=== PATIENT | female | born 1955 | race Caucasian/White ===

== ENCOUNTER → 2017-08-15 | Outpatient (CLI) | payer OTHER ==
--- NOTE | 2017-08-16 07:26 | MAMMOGRAPHY REPORT ---
BILATERAL DIGITAL SCREENING MAMMOGRAM TOMOSYNTHESIS WITH CAD: 08/15/2017 CLINICAL HISTORY: Routine screening examination. TECHNIQUE: Breast tomosynthesis in addition to standard 2D mammography was performed. Current study was also evaluated with a Computer Aided Detection (CAD) system. COMPARISON: Comparison is made to exams dated: 08/12/2016 mammogram, 07/16/2015 mammogram, 07/15/2014 mammogram, 07/12/2013 mammogram - [facility] [address], 01/15/2009, and 01/03/2009. BREAST COMPOSITION: There are scattered areas of fibroglandular density in both breasts. FINDINGS: There are stable benign rodlike calcifications in both breasts. No suspicious mass, archi tectural distortion or cluster of microcalcifications is seen. IMPRESSION: ACR BI-RADS CATEGORY 2: BENIGN There is no mammographic evidence of malignancy. A 1 year screening mammogram is recommended. The pa tient will receive written notification of the results. Approximately 10% of breast cancers are not detected with mammography. A negative mammographic report should not delay biopsy if a clinically suggestive mass is present. Preethi Hodges M.D. ay/:08/15/2017 16:43:49 Scrub Nurse: Anupama COMBS(Dimitri)(Saw), [facility] [address] letter sent: Normal 1/2 BI-RADS Code: ACR BI-RADS Category 2: Benign
== END | disposition home or self-care (01) ==
LOC: C.MAMM 08:56
PROVIDERS: ATTEND Family Medicine
DX: Z12.31 Encounter for screening mammogram for malignant neoplasm of breast (principal)

== ENCOUNTER 2019-02-27 17:55 | Inpatient (IN) ==
[2019-02-27] MEDS ORDERED: ADENOSINE IV SOLN 3 MG/ML 2 ML VIAL IV ONE (18:07)
[2019-02-27] MEDS ORDERED: LORazepam 1 MG/2 ML VIAL IV STA (18:14)
[2019-02-27] MEDS ORDERED: LORazepam 2 MG/4 ML VIAL ONE (18:14)
[2019-02-27] MEDS ORDERED: ASPIRIN CHEW 324 MG PO STA (18:14)
[2019-02-27] MEDS ORDERED: SODIUM CHLORIDE 0.9% 1000ML 1,000 ML IV SCH (18:15)
[2019-02-27 18:31] LABS: Basophils # (auto) 0.04 K/uL (0-0.2); Basophils % (auto) 0.3 %; Eosinophils # (auto) 0.11 K/uL (0-0.5); Eosinophils % (auto) 0.9 %; Hematocrit (blood only) 45.9 % (37-47); Hemoglobin 15.7 g/dL (12.0-16.0); Immature Granulocytes # (auto) 0.03 K/uL (0.00-0.02); Immature Granulocytes % (auto) 0.2 %; Lymphocytes # (auto) 3.87 K/uL (1.2-3.4); Lymphocytes % (auto) 30.1 %; Mean Corpuscular Hgb Conc 34.2 g/dL (32-36); Mean Platelet Volume 8.6 fL (7.4-10.4); Monocytes # (auto) 0.97 K/uL (0.11-0.59); Monocytes % (auto) 7.6 %; Neutrophils # (auto) 7.82 K/uL (1.4-6.5); Neutrophils % (auto) 60.9 %; Platelet Count 309 K/uL (130-400); RDW Coefficient of Variation 13.5 % (11.5-14.5); Red Blood Count 5.16 M/uL (4.2-5.4); White Blood Count 12.84 K/uL (4.8-10.8)
[2019-02-27 18:39] LABS: BUN Creatinine Ratio 22.2 (10-20); Blood Urea Nitrogen 20 mg/dl (7-18); Calcium 9.4 mg/dl (8.5-10.1); Carbon Dioxide 27 mmol/L (21-32); Chloride 102 mmol/L (98-107); Est GFR (African American) 77.9; Est GFR (Non-African American) 67.2; Glucose 129 mg/dl (70-99); Potassium 3.9 mmol/L (3.5-5.1); Sodium 138 mmol/L (136-145)
[2019-02-27 18:43] LABS: Partial Thromboplastin Time 26.7 Seconds (21.0-31.0); Prothrombin Time 9.9 Seconds (9.0-12.0); Troponin I < 0.015 ng/ml (0-0.045)
--- NOTE | 2019-02-27 18:48 | XRay Report ---
XR chest 1V portable CLINICAL HISTORY: Chest Pain COMPARISON STUDY: No previous studies for comparison. FINDINGS: The bones soft tissues and hemidiaphragms are normal. The cardiomediastinal silhouette is n ormal. The lungs are clear. The pulmonary vasculature is normal. IMPRESSION: Negative chest. The above report was generated using voice recognition software. It may contain grammatical, syntax or spelling errors. Electronically signed by: Delvis Boateng M.D. 02/27/2019 6:47 PM
[2019-02-27] MEDS ORDERED: OPTIRAY 320 125ml IV PRN (19:01)
--- NOTE | 2019-02-27 19:20 | CT Scan Report ---
CT angio chest PE protocol CT DOSE: 722.24 mGy.cm HISTORY: Chest pain. Dyspnea. Chest Pain, eval for PE TECHNIQUE: Multiaxial CT images of the chest were performed following the intravenous administration of contrast to evaluate the pulmonary arteries. Maximal intensity projection images were also obtaine d. A dose lowering technique was utilized adhering to the principles of ALARA. COMPARISON STUDY: None. FINDINGS: There is a normal caliber thoracic aorta with no evidence for dissection. There is no evide nce for pulmonary embolus. No pleural effusions. No pneumothorax. The liver and spleen are unremarkab le. No mediastinal or hilar lymphadenopathy. The central airways are patent. The lungs are clear. IMPRESSION: No evidence for pulmonary embolus. The lungs are clear. The above report was generated using voice recognition software. It may contain grammatical, syntax or spelling errors. Electronically signed by: Delvis Boateng M.D. 02/27/2019 7:19 PM
[2019-02-27] MEDS ORDERED: POTASSIUM CHLORIDE 20 MEQ TABCR PO STA (20:00)
[2019-02-27 21:00] LABS: Alanine Aminotransferase 30 U/L (12-78); Albumin Level 4.1 gm/dl (3.4-5.0); Alkaline Phosphatase 86 U/L (45-117); Aspartate Aminotransferase 20 U/L (15-37); Bilirubin Direct 0.1 mg/dl (0-0.2); Bilirubin,Total 0.6 mg/dl (0.2-1); Magnesium 2.1 mg/dl (1.8-2.4); Total Protein 7.9 gm/dl (6.4-8.2)
--- NOTE | 2019-02-27 21:39 | Emergency Department Note ---
Entered by Tita Wheat acting as a scribe for History of Present Illness General Chief complaint: Cardiac Assessment Stated complaint: HEART PALPITATIONS, DIZZY, SOB Time Seen by Provider: 02/27/19 18:13 Source: patient History of Present Illness Onset (ago): hour(s) 1 Location: chest Severity: similar to prior episodes Pain Consistency: + other (episode ) Maximum Pain Intensity: 3 Quality: + other (palpitations) Associated symptoms: + other (positive dizziness; positive lightheaded; negative diarrhea; negative coughing up blood); no chest pain, no fever/chills, no nausea/vomiting, no shortness of breath and no syncope The patient is a 63 year old female who presents to the Emergency Room with complaints of an episode of heart palpitations that began 1 hour prior to arrival. The patient states that she feels dizzy and lightheaded, and states that she felt as though she was going to pass out. The patient denies syncope. She denies nausea, vomiting, diarrhea, fevers, coughing up blood, chest pain, and shortness of breath. The patient denies recent travel and recent surgeries. She denies the use of hormone pills. The patient denies having any excess caffeine this morning, and states that she has not had a lot to eat today. The patient states that this is similar to a prior episode 10 years ago, and states that this episode was due to anxiety. The patient denies recent or current anx iety, but states that she has had increased stress in her life over the last year. Home Medications Home Medications Medication Instructions Recorded Confirmed Type ijsjanm-[id number] 2 tab PO QPM 02/27/19 02/27/19 History ibuprofen [Advil] 200 - 400 mg PO UD PRN 02/27/19 02/27/19 History Allergies Allergy/AdvReac Type Severity Reaction Status Date / Time No Known Allergies Allergy Verified 02/27/19 18:55 Past Med/Surg History Medical History No significant past medical history Social History Preferred Language: Haitian Communication Ability: Effective Assistant Community Director Required: No Beliefs That Will Affect Care: None Current Living Situation: Spouse Feels Safe at Home: Yes Safety Concerns: Feels Safe At This Time Smoking Status: Never smoker Do You Dip or Chew Tobacco: No Hx Alcohol Use: Yes Hx Substance Use: No Review of Systems See HPI for pertinent positives & negatives. and A total of 10 systems reviewed and were otherwise negative Physical Exam Vital Signs Vital Signs - 24 hr 02/27/19 17:59 02/27/19 18:42 02/27/19 19:05 Temperature 36.8 C Temperature Source Oral Sepsis Recent Fever Within 48 Hours No Sepsis Action Taken by Nursing No Action Required Pulse Rate 178 H Pulse Rate [Apical] 86 85 Pulse Rhythm [Apical] Regular Pulse Strength [Apical] Normal Respiratory Rate 20 20 18 Respiratory Effort / Characteristics Non-Labored Non-Labored Spontaneous Non-Labored Spontaneous Respiratory Depth Normal Normal Normal Respiratory Pattern Regular Regular Blood Pressure 85/52 L Blood Pressure [Right Arm] 122/99 134/83 Blood Pressure Mean 63 Blood Pressure Mean [Right Arm] 106 100 Blood Pressure Position [Right Arm] Sitting Sitting Pulse Oximetry 98 97 95 Oxygen Delivery Method Room Air Room Air GENERAL: She is oriented to person, place, and time. She appears well-developed and well-nourished. She does not appear distressed. HENT: Exam performed. -Head: Normocephalic and atraumatic. -Right Ear: External ear normal. No mastoid tenderness. -Left Ear: External ear normal. No mastoid tenderness. -Mouth/Throat: The oropharynx is clear and moist. No trismus in the jaw. No dental abscesses or uvula swelling. No oropharyngeal exudate or tonsillar abscesses. EYES: Conjunctivae and EOM are normal. Pupils are equal, round, and reactive to light. Right eye exhibits no discharge. Left eye exhibits no discharge. No scleral icterus. NECK: Normal range of motion. Neck supple. No JVD present. No spinous process tenderness present. No carotid bruit present. No rigidity. No tracheal deviation and normal range of motion present. No Brudzinski's sign and no Kernig's sign noted. CV: Tachycardic rate, regular rhythm, normal heart sounds and intact distal pulses. There is no peripheral edema. Palpable radial pulses bue. PULM/CHEST: Effort normal and breath sounds normal. No respiratory distress. No stridor. She has no wheezes. She has no rales. Chest Wall: She exhibits no tenderness. ABD: The abdomen is soft. Bowel sounds are normal. She has no distension. No mass is present. There is no tenderness. There is no rebound, no guarding, no M urphy's sign and no tenderness at McBurney's point. Rovsig negative MUSC/SKEL: Normal range of motion. There is no peripheral edema, tenderness or deformity. LYMPH: No cervical adenopathy. NEURO: She is alert and oriented to person, place, and time. She has normal strength. No cranial nerve deficit or sensory deficit. Coordination and gait normal. GCS eye subscore is 4. GCS verbal subscore is 5. GCS motor subscore is 6. cerbellar tests wnl. SKIN: Skin is warm and dry. She is not diaphoretic. PSYCH: She has a normal mood and affect. Her behavior is normal. Judgment and thought content normal. Course 1802: The patient was evaluated in room A1, and a complete history and physical examination were performed. Upon immediate evaluation, the patient appeared to have SVT on the monitor with a heart rate of 170. Her blood pressure was 146/128. Modified vagal maneuvers were attempted but were unsuccessful. 6mg of adenosine was then given. 1820: SVT broken after 6 mg of adenosine. Blood pressure stable. 1929: The patient's vital signs are stable. The patient remains in sinus rhythm status post adenosine. Her labs and imaging are within normal limits. I [facility] the [facility] the patient for further evaluation by Cardiology. Administered Medications Ioversol (Optiray 320 125ml) 84 ml IV ONCE PRN PRN Reason: Interaction Checking Stop: 03/03/19 19:00 Last Admin: 02/27/19 19:02 Dose: 84 ml Documented by: [id number] Discontinued Medications Adenosine (Adenosine) Confirm Administered Dose 6 mg IV .STPhlebotek Phlebot[employer] Solutions-MED ONE Stop: 02/27/19 18:08 Last Admin: 02/27/19 18:09 Dose: 6 mg Documented by: [id number] Aspirin (Aspirin) 324 mg PO NOW STA Stop: 02/27/19 18:15 Last Admin: 02/27/19 18:36 Dose: 324 mg Documented by: [id number] Lorazepam (Ativan) 1 mg in 2 mls @ 2 mls/min IV NOW STA Stop: 02/27/19 18:15 Last Admin: 02/27/19 18:17 Dose: 2 mls/min Documented by: [id number] Sodium Chloride (Nss 1000ml) 1,000 mls @ 999 mls/hr IV .Q1H1M MARCIA Stop: 02/27/19 19:15 Last Infusion: 02/27/19 19:17 Dose: 0 mls/hr Documented by: [id number] Admin: 02/27/19 18:18 Dose: 999 mls/hr Documented by: [id number] Lorazepam (Ativan) Confirm Administered Dose 2 mg .ROUTE .STK-MED ONE Stop: 02/27/19 18:15 Last Admin: 02/27/19 18:17 Dose: Not Given Documented by: [id number] Potassium Chloride (Klor-Con M20) 20 meq PO NOW STA Stop: 02/27/19 20:01 Last Admin: 02/27/19 20:12 Dose: 20 meq Documented by: [id number] Medical Decision Making Medical Records Attestation: I reviewed the patient's medical records. Home Medications Current Medication List: was personally reviewed by me Laboratory Data Attestation: I reviewed the patient's lab results. Result diagrams: 02/27/19 18:10 02/27/19 18:10 Lab Results 02/27/19 02/27/19 02/27/19 Range/Units 18:10 18:10 18:10 WBC 12.84 H (4.8-10.8) K/uL RBC 5.16 (4.2-5.4) M/uL Hgb 15.7 (12.0-16.0) g/dL Hct 45.9 (37-47) % MCV 89.0 (80-100) fL MCH 30.4 (25-34) pg MCHC 34.2 (32-36) g/dL RDW Std Deviation 44.0 (36.4-46.3) fL RDW Coeff of Wyatt 13.5 (11.5-14.5) % Plt Count 309 (130-400) K/uL MPV 8.6 (7.4-10.4) fL Immature Gran % (Auto) 0.2 % Neut % (Auto) 60.9 % Lymph % (Auto) 30.1 % [place] % (Auto) 7.6 % Eos % (Auto) 0.9 % Baso % (Auto) 0.3 % Immature Gran # (Auto) 0.03 H (0.00-0.02) K/uL Neut # (Auto) 7.82 H (1.4-6.5) K/uL Lymph # (Auto) 3.87 H (1.2-3.4) K/uL [place] # (Auto) 0.97 H (0.11-0.59) K/uL Eos # (Auto) 0.11 (0-0.5) K/uL Baso # (Auto) 0.04 (0-0.2) K/uL PT 9.9 (9.0-12.0) Seconds INR 1.0 (0.9-1.1) APTT 26.7 (21.0-31.0) Seconds PTT Ratio 1.0 Sodium 138 (136-145) mmol/L Potassium 3.9 (3.5-5.1) mmol/L Chloride 102 (98-107) mmol/L Carbon Dioxide 27 (21-32) mmol/L Anion Gap 9.0 (3-11) BUN 20 H (7-18) mg/dl Creatinine 0.92 (0.6-1.2) mg/dl Est Cr Clr Drug Dosing Not Reportable Est GFR ( Amer) 77.9 Est GFR (Non-Af Amer) 67.2 BUN/Creatinine Ratio 22.2 H (10-20) Glucose 129 H (70-99) mg/dl Calcium 9.4 (8.5-10.1) mg/dl Magnesium 2.1 (1.8-2.4) mg/dl Total Bilirubin 0.6 (0.2-1) mg/dl Direct Bilirubin 0.1 (0-0.2) mg/dl AST 20 (15-37) U/L ALT 30 (12-78) U/L Alkaline Phosphatase 86 (45-117) U/L Troponin I < 0.015 (0-0.045) ng/ml Total Protein 7.9 (6.4-8.2) gm/dl Albumin 4.1 (3.4-5.0) gm/dl Lipase 133 (73-393) U/L TSH 4.260 (0.300-4.500) uIu/ml Imaging Data Radiologist's Impression: Radiology results as stated below per my review and the radiologist's interpretation: XR chest 1V portable CLINICAL HISTORY: Chest Pain COMPARISON STUDY: No previous studies for comparison. FINDINGS: The bones soft tissues and hemidiaphragms are normal. The cardiomediastinal silhouette is normal. The lungs are clear. The pulmonary vasculature is normal. IMPRESSION: Negative chest. The above report was generated using voice recognition software. It may contain grammatical, syntax or spelling errors. Electronically signed by: Delvis Boateng M.D. 02/27/2019 6:[address] angio chest PE protocol CT DOSE: 722.24 mGy.cm HISTORY: Chest pain. Dyspnea. Chest Pain, eval for PE TECHNIQUE: Multiaxial CT images of the chest were performed following the intravenous administration of contrast to evaluate the pulmonary arteries. Maximal intensity projection images were also obtained. A dose lowering technique was utilized adhering to the principles of ALARA. COMPARISON STUDY: None. FINDINGS: There is a normal caliber thoracic aorta with no evidence for dissection. There is no evidence for pulmonary embolus. No pleural effusions. No pneumothorax. The liver and spleen are unremarkable. No mediastinal or hilar lymphadenopathy. The central airways are patent. The lungs are clear. IMPRESSION: No evidence for pulmonary embolus. The lungs are clear. The above report was generated using voice recognition software. It may contain grammatical, syntax or spelling errors. Electronically signed by: Delvis Boateng M.D. 02/27/2019 7:19 PM ECG Data Attestation: I personally reviewed and interpreted this ECG as follows: Indication: palpitations Rate (beats per minute): 171 Rhythm: SVT Findings: + other (QRS interval 102; QTC interval 458) and + ST depression (mild in leads V4 through V6); no ST elevation Additional Comments: Repeat ECG at 1813 status post adenosine showed sinus tachycardia with a rate of 149. DC, QRS, and QTC intervals were within normal limits. No ST elevation or depression. Repeat ECG at 1815 showed sinus tachycardia with a rate of 123. DC, QRS, and QTC intervals within normal limits. No ST elevation or depression. Repeat ECG at 1816 showed sinus rhythm with a rate of 89. DC, QRS, and QTC intervals were within normal limits. No ST elevation or depression. Blood Pressure Blood Pressure Findings: Normal blood pressure MDM Narrative 1803: The patient was evaluated in room A1, and a complete history and physical examination were performed. Upon immediate evaluation, the patient appeared to have SVT on the monitor with a heart rate of 170. Her blood pressure was 146/128. Modified vagal maneuvers were attempted but were unsuccessful. 6mg of adenosine was then given. 1819: SVT broken after 6 mg of adenosine. Blood pressure stable. 1928: The patient's vital signs are stable. The patient remains in sinus rhythm status post adenosine. Her labs and imaging are within normal limits. I discussed the case with Dr. Goode Hospitalist who accepts the patient for further evaluation by Cardiology. Impression & Plan SVT (supraventricular tachycardia) Critical Care Time I have personally spent 36 minutes of critical care time in the direct management of this patient. This includes bedside care, interpretation of diagnostic studies, and testing, discussion with consultants, patient, and family members, and other required patient management activities. This 36 minutes is in excess of all separately billable procedures. Critical Care Time: Yes Total Critical Care Time: 36 Discharge Plan Visit Data Chief Complaint: Cardiac Assessment Stated Complaint: HEART PALPITATIONS, DIZZY, SOB ED Provider: Ricci Herrera Discharge Problem: SVT (supraventricular tachycardia) Patient Disposition: Being Evaluated by Hospitalist Forms Stand Alone Forms: My [facility] Prescriptions Prescriptions: No Action [id number] Tablet 2 tab PO QPM RF: 0 ibuprofen [Advil] 200 mg Tablet 200 - 400 mg PO UD PRN (Reason: Pain) RF: 0 Referrals Referrals: Delvis Yousif MD [Primary Care Provider] - The scribe's documentation has been prepared under my direction and personally reviewed by me in its entirety. I confirm that the note above accurately reflects all work, treatment, procedures, and medical decision making performed by me.
--- NOTE | 2019-02-27 21:41 | History & Physical Report ---
Date of Service February 27, 2019 Assessment & Plan (1) SVT (supraventricular tachycardia): Recurrent SVT Possibly secondary to mild clinical dehydration Resolved after initial intervention at the ER. Hyperglycemia rule out DM PCU IVF TTE, Cardiology consult RE recurrent SVT Check hemoglobin A1c DVT prophylaxis. Lovenox subcu Full code History of Present Illness Chief Complaint: Palpitations Primary Care Provider: Delvis Yousif MD History obtained from patient, family, and records. Medical history significant for paroxysmal atrial tachycardia as per records. Patient has a history of symptomatic atrial tachycardia for which she was taking a prophylactic daily beta-suzanne from 1643-1131. Patient stopped beta-suzanne because of fatigue for medication and infrequent palpitations. Patient noted bothersome heart palpitations this afternoon companied by dizziness. No chest pain, no S OB. No unusual stress except that she had not been able to eat as much today secondary to helping family with a new baby. At the ER, patient noted to be in SVT, cardiac rate 170s. Persistent SVT despite vagal maneuvers. SVT terminated following IV adenosine administration. Patient currently comfortable. 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 Allergies Allergy/AdvReac Type Severity Reaction Status Date / Time No Known Allergies Allergy Verified 02/27/19 18:55 Home Medications Home Medications Medication Instructions Recorded Confirmed Type ytbnvto-heuwaxxla-sawu 2 tab PO QPM 02/27/19 02/27/19 History ibuprofen [Advil] 200 - 400 mg PO UD PRN 02/27/19 02/27/19 History Past Med/Surg History Medical History No significant past medical history Social History Preferred Language: Taiwanese Communication Ability: Effective Nursing Informatics Specialist Required: No Beliefs That Will Affect Care: None Current Living Situation: Spouse Feels Safe at Home: Yes Safety Concerns: Feels Safe At This Time Smoking Status: Never smoker Do You Dip or Chew Tobacco: No Hx Alcohol Use: Yes Hx Substance Use: No Review of Systems Review of Systems: As per HPI, all 10 systems reviewed, all other ROS negative Physical Exam Physical Exam: GENERAL: Comfortable, obese, pleasant, looks younger than stated age, no respiratory distress SKIN: Normal color, warm HEENT: [place] palpebral conjunctivae, no ptosis, dry buccal mucosa NECK : Supple, short, no tenderness CHEST : CTA, no tenderness HEART : RRR, no obvious murmurs ABDOMEN: Some distention, nontender EXTREMITIES : No LE swelling/tenderness, no other conspicuous deformities noted NEUROLOGIC : Coherent, no facial asymmetry, no other gross focality Results & Data Vital Signs (Past 12 Hours) Vital Signs Temp Pulse Pulse Resp BP BP Pulse Ox 02/27/19 19:05 85 18 134/83 95 02/27/19 18:42 86 20 122/99 97 02/27/19 17:59 36.8 C 178 H 20 85/52 L 98 Laboratory Results Laboratory Results WBC 12.84 K/uL (4.8-10.8) H 02/27/19 18:10 RBC 5.16 M/uL (4.2-5.4) 02/27/19 18:10 Hgb 15.7 g/dL (12.0-16.0) 02/27/19 18:10 Hct 45.9 % (37-47) 02/27/19 18:10 MCV 89.0 fL (80-100) 02/27/19 18:10 MCH 30.4 pg (25-34) 02/27/19 18:10 MCHC 34.2 g/dL (32-36) 02/27/19 18:10 RDW Std Deviation 44.0 fL (36.4-46.3) 02/27/19 18:10 RDW Coeff of Wyatt 13.5 % (11.5-14.5) 02/27/19 18:10 Plt Count 309 K/uL (130-400) 02/27/19 18:10 MPV 8.6 fL (7.4-10.4) 02/27/19 18:10 Immature Gran % (Auto) 0.2 % 02/27/19 18:10 Neut % (Auto) 60.9 % 02/27/19 18:10 Lymph % (Auto) 30.1 % 02/27/19 18:10 [place] % (Auto) 7.6 % 02/27/19 18:10 Eos % (Auto) 0.9 % 02/27/19 18:10 Baso % (Auto) 0.3 % 02/27/19 18:10 Immature Gran # (Auto) 0.03 K/uL (0.00-0.02) H 02/27/19 18:10 Neut # (Auto) 7.82 K/uL (1.4-6.5) H 02/27/19 18:10 Lymph # (Auto) 3.87 K/uL (1.2-3.4) H 02/27/19 18:10 [place] # (Auto) 0.97 K/uL (0.11-0.59) H 02/27/19 18:10 Eos # (Auto) 0.11 K/uL (0-0.5) 02/27/19 18:10 Baso # (Auto) 0.04 K/uL (0-0.2) 02/27/19 18:10 PT 9.9 Seconds (9.0-12.0) 02/27/19 18:10 INR 1.0 (0.9-1.1) 02/27/19 18:10 APTT 26.7 Seconds (21.0-31.0) 02/27/19 18:10 PTT Ratio 1.0 02/27/19 18:10 Sodium 138 mmol/L (136-145) 02/27/19 18:10 Potassium 3.9 mmol/L (3.5-5.1) 02/27/19 18:10 Chloride 102 mmol/L (98-107) 02/27/19 18:10 Carbon Dioxide 27 mmol/L (21-32) 02/27/19 18:10 Anion Gap 9.0 (3-11) 02/27/19 18:10 BUN 20 mg/dl (7-18) H 02/27/19 18:10 Creatinine 0.92 mg/dl (0.6-1.2) 02/27/19 18:10 Est Cr Clr Drug Dosing Not Reportable 02/27/19 18:10 Est GFR ( Amer) 77.9 02/27/19 18:10 Est GFR (Non-Af Amer) 67.2 02/27/19 18:10 BUN/Creatinine Ratio 22.2 (10-20) H 02/27/19 18:10 Glucose 129 mg/dl (70-99) H 02/27/19 18:10 Calcium 9.4 mg/dl (8.5-10.1) 02/27/19 18:10 Magnesium 2.1 mg/dl (1.8-2.4) 02/27/19 18:10 Total Bilirubin 0.6 mg/dl (0.2-1) 02/27/19 18:10 Direct Bilirubin 0.1 mg/dl (0-0.2) 02/27/19 18:10 AST 20 U/L (15-37) 02/27/19 18:10 ALT 30 U/L (12-78) 02/27/19 18:10 Alkaline Phosphatase 86 U/L (45-117) 02/27/19 18:10 Troponin I < 0.015 ng/ml (0-0.045) 02/27/19 18:10 Total Protein 7.9 gm/dl (6.4-8.2) 02/27/19 18:10 Albumin 4.1 gm/dl (3.4-5.0) 02/27/19 18:10 Lipase 133 U/L (73-393) 02/27/19 18:10 TSH 4.260 uIu/ml (0.300-4.500) 02/27/19 18:10 Diagnostic Findings CTA: No evidence for pulmonary embolus. The lungs are clear. EKG as per my interpretation:Rate 170, SVT, ST depression inferolateral leads
[2019-02-27] MEDS ORDERED: PROMETHAZINE HCL 12.5 MG in SODIUM CHLORIDE 0.9% 50 ML IV PRN (21:44)
[2019-02-27] MEDS ORDERED: ACETAMINOPHEN 325 MG TAB PO PRN (21:44)
[2019-02-27] MEDS ORDERED: NSS + 20MEQ KCL 20 MEQ/1,000 ML BAG IV ONE (21:44)
[2019-02-27] MEDS ORDERED: LORazepam 0.25 MG/0.5 ML VIAL IV PRN (21:44)
[2019-02-27] MEDS ORDERED: TRAMADOL HCL 50 MG TABLET PO PRN (21:44)
[2019-02-28 06:07] LABS: Estimated Average Glucose 131 mg/dl; Hemoglobin A1C 6.2 % (4.5-5.6)
[2019-02-28 07:18] LABS: Basophils # (auto) 0.02 K/uL (0-0.2); Basophils % (auto) 0.3 %; Eosinophils # (auto) 0.11 K/uL (0-0.5); Eosinophils % (auto) 1.5 %; Hematocrit (blood only) 40.4 % (37-47); Hemoglobin 13.4 g/dL (12.0-16.0); Immature Granulocytes # (auto) 0.02 K/uL (0.00-0.02); Immature Granulocytes % (auto) 0.3 %; Lymphocytes # (auto) 2.85 K/uL (1.2-3.4); Lymphocytes % (auto) 38.1 %; Mean Corpuscular Hgb Conc 33.2 g/dL (32-36); Mean Corpuscular Volume 89.8 fL (80-100); Mean Platelet Volume 8.7 fL (7.4-10.4); Monocytes # (auto) 0.48 K/uL (0.11-0.59); Monocytes % (auto) 6.4 %; Neutrophils # (auto) 4.01 K/uL (1.4-6.5); Neutrophils % (auto) 53.4 %; Platelet Count 234 K/uL (130-400); RDW Coefficient of Variation 13.7 % (11.5-14.5); RDW Standard Deviation 45.3 fL (36.4-46.3); White Blood Count 7.49 K/uL (4.8-10.8)
--- NOTE | 2019-02-28 08:05 | Cardiology Consultation ---
Date of Consultation February 28, 2019 Assessment & Plan (1) SVT (supraventricular tachycardia): Patient presents with symptomatic episode of supraventricular tachycardia with ECG suggesting AV pratik reentrant tachycardia. Treatment options discussed including medical therapy and eventual ablation if necessary. Patient agreeable to Toprol-XL 25 mg daily. Encouraged her to avoid excessive caffeine and alcohol intake as well as maintain adequate hydration and electrolyte replacement. TSH within normal limits. Resting 2D transthoracic echocardiogram pending at this time. Patient may be discharged to home. Cardiology follow-up in 1 month. Thank you for allowing me to participate in care of your patient. History of Present Illness Reason for Consultation: PSVT Requesting Physician: Dr. Jabari Rosado Attending Physician: Leena Brito DO History of Present Illness 63-year-old female presents the emergency department palpitations. Describes sudden onset of "heart pounding". He felt a rapid and forceful heartbeat. The palpitations persisted for more than 30 minutes. She came to the emergency department where ECG confirmed presence of supraventricular tachycardia, likely AVNRT. Vagal maneuvers were attempted however unsuccessful. Patient treated with 6 mg of intravenous adenosine was successfully converted to sinus rhythm. She has remained in sinus rhythm overnight. Beta-suzanne was not administered. Currently, patient is resting comfortably. Carries history of palpitations and atrial tachycardia dating back to 2005. At that time she was treated with low- dose beta-suzanne therapy and magnesium supplementation. Beta-suzanne was subsequently discontinued and she has been symptom-free for many years. Notes mild fatigue associated with beta-suzanne in the past. Denies chest discomfort or unusual shortness of breath. Notes a family history of dysrhythmias with her mother, and uncles. Tolerating a.m. meal. Denies any recent excessive caffeine or alcohol intake. No recent illness, fever, or dysuria. Offers no complaints at this time. Allergies Allergy/AdvReac Type Severity Reaction Status Date / Time No Known Allergies Allergy Verified 02/27/19 18:55 Home Medications Home Medications Medication Instructions Recorded Confirmed Type inayvyq-ifcozoxln-ehvm 2 tab PO QPM 02/27/19 02/27/19 History ibuprofen [Advil] 200 - 400 mg PO UD PRN 02/27/19 02/27/19 History Patient History Medical History Atrial tachycardia No significant past medical history Palpitation Social History Preferred Language: Brazilian Communication Ability: Effective Instructional Manager Required: No Beliefs That Will Affect Care: None Current Living Situation: Spouse Feels Safe at Home: Yes Safety Concerns: Feels Safe At This Time Smoking Status: Never smoker Do You Dip or Chew Tobacco: No Hx Alcohol Use: Yes Hx Substance Use: No Review of Systems Review of Systems: All systems reviewed & are unremarkable except as noted in HPI & below Physical Exam Physical Exam: General: NAD, AAO x3, well nourished. Overweight. HEENT: Normocephalic. Atraumatic. Conjunctiva pink, no scleral icterus. Neck: No carotid bruits, the carotid upstrokes are brisk. No JVD. No HJR Heart: Regular normal S-1 and S-2 no S-3 or S-4 gallop. No murmurs or rub appreciated. PMI is not displaced. No RV heave. Lungs: Clear bilateral without rales , rhonchi, or wheeze. Abdomen: Normal bowel sounds. Soft. Nontender. No masses or organomegaly. No abdominal bruits. Extremities: No clubbing, cyanosis, or edema. Pulses: radial=2/4, Dorsalis pedis =2/4, posterior tibial=2/4. Neuro: Cranial nerves grossly intact. No focal motor deficit. Results & Data Vital Signs (Past 12 Hours) Vital Signs Temp Pulse Pulse Resp BP BP BP 02/28/19 04:00 36.6 C 73 18 158/88 H 02/28/19 00:21 37.0 C 72 18 157/78 H 02/27/19 23:15 96 H 02/27/19 22:52 36.7 C 92 H 16 151/88 H 02/27/19 22:27 85 18 122/83 02/27/19 22:25 82 18 122/83 02/27/19 21:41 02/27/19 21:00 87 18 138/85 Pulse Ox 02/28/19 04:00 97 02/28/19 00:21 96 02/27/19 23:15 02/27/19 22:52 95 02/27/19 22:27 95 02/27/19 22:25 95 02/27/19 21:41 99 02/27/19 21:00 99 Laboratory Results Laboratory Results - last 24 hr 02/27/19 02/27/19 02/27/19 18:10 18:10 18:10 WBC 12.84 H RBC 5.16 Hgb 15.7 Hct 45.9 MCV 89.0 MCH 30.4 MCHC 34.2 RDW Std Deviation 44.0 RDW Coeff of Wyatt 13.5 Plt Count 309 MPV 8.6 Immature Gran % (Auto) 0.2 Neut % (Auto) 60.9 Lymph % (Auto) 30.1 Sterling % (Auto) 7.6 Eos % (Auto) 0.9 Baso % (Auto) 0.3 Immature Gran # (Auto) 0.03 H Neut # (Auto) 7.82 H Lymph # (Auto) 3.87 H Sterling # (Auto) 0.97 H Eos # (Auto) 0.11 Baso # (Auto) 0.04 PT 9.9 INR 1.0 APTT 26.7 PTT Ratio 1.0 Sodium 138 Potassium 3.9 Chloride 102 Carbon Dioxide 27 Anion Gap 9.0 BUN 20 H Creatinine 0.92 Est Cr Clr Drug Dosing Not Reportable Est GFR ( Amer) 77.9 Est GFR (Non-Af Amer) 67.2 BUN/Creatinine Ratio 22.2 H Glucose 129 H Estimat Average Glucose Hemoglobin A1c Calcium 9.4 Magnesium 2.1 Total Bilirubin 0.6 Direct Bilirubin 0.1 AST 20 ALT 30 Alkaline Phosphatase 86 Troponin I < 0.015 Total Protein 7.9 Albumin 4.1 Lipase 133 Procalcitonin TSH 4.260 02/27/19 02/27/19 02/28/19 18:10 20:44 06:43 WBC 7.49 RBC 4.50 Hgb 13.4 Hct 40.4 MCV 89.8 MCH 29.8 MCHC 33.2 RDW Std Deviation 45.3 RDW Coeff of Wyatt 13.7 Plt Count 234 MPV 8.7 Immature Gran % (Auto) 0.3 Neut % (Auto) 53.4 Lymph % (Auto) 38.1 Sterling % (Auto) 6.4 Eos % (Auto) 1.5 Baso % (Auto) 0.3 Immature Gran # (Auto) 0.02 Neut # (Auto) 4.01 Lymph # (Auto) 2.85 Sterling # (Auto) 0.48 Eos # (Auto) 0.11 Baso # (Auto) 0.02 PT INR APTT PTT Ratio Sodium Potassium Chloride Carbon Dioxide Anion Gap BUN Creatinine Est Cr Clr Drug Dosing Est GFR ( Amer) Est GFR (Non-Af Amer) BUN/Creatinine Ratio Glucose Estimat Average Glucose 131 Hemoglobin A1c 6.2 H Calcium Magnesium Total Bilirubin Direct Bilirubin AST ALT Alkaline Phosphatase Troponin I Total Protein Albumin Lipase Procalcitonin < 0.05 TSH
[2019-02-28] MEDS ORDERED: METOPROLOL SUCC 25MG EXT REL TAB PO SCH (09:00)
[2019-02-28] MEDS ORDERED: ENOXAPARIN INJ 40 MG/0.4 ML SYR SQ SCH (09:00)
--- NOTE | 2019-02-28 09:58 | Discharge Summary ---
Date of Service February 28, 2019 Admission HPI Per Admitting Provider History obtained from patient, family, and records. Medical history significant for paroxysmal atrial tachycardia as per records. Patient has a history of symptomatic atrial tachycardia for which she was taking a prophylactic daily beta-suzanne from [id number]. Patient stopped beta-suzanne because of fatigue for medication and infrequent palpitations. Patient noted bothersome heart palpitations this afternoon companied by dizziness. No chest pain, no S OB. No unusual stress except that she had not been able to eat as much today secondary to helping family with a new baby. At the ER, patient noted to be in SVT, cardiac rate 170s. Persistent SVT despite vagal maneuvers. SVT terminated following IV adenosine administration. Patient currently comfortable. 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 Admission Exam Per Admitting Provider GENERAL: Comfortable, obese, pleasant, looks younger than stated age, no respiratory distress SKIN: Normal color, warm HEENT: [place] palpebral conjunctivae, no ptosis, dry buccal mucosa NECK : Supple, short, no tenderness CHEST : CTA, no tenderness HEART : RRR, no obvious murmurs ABDOMEN: Some distention, nontender EXTREMITIES : No LE swelling/tenderness, no other conspicuous deformities noted NEUROLOGIC : Coherent, no facial asymmetry, no other gross focality Principal Diagnosis SVT Discharge Exam CONSTITUTIONAL: WNWD, vitals as above, generally well-appearing EYES: normal conjuctivae, no scleral icterus ENT: MMM NECK: trachea midline RESPIRATORY: clear to auscultation bilaterally, no crackles, rales or wheezes, normal respiratory effort CARDIOVASCULAR: regular rate and rhythm, S1 and 2 heard without murmurs, gallops or rubs, no JVD, no peripheral edema CHEST: inspection of chest was normal MUSCULOSKELETAL: moves all extremities equally, ambulatory, head is normocephalic and atraumatic SKIN: warm and dry NEUROLOGIC: CN 2-12 grossly intact, normal cognition, normal speech, no gross focal deficit. PSYCHIATRIC: alert cooperative and oriented to person, place and time. Euthymic mood, makes good eye contact Discharge Data Allergies Allergy/AdvReac Type Severity Reaction Status Date / Time No Known Allergies Allergy Verified 02/27/19 18:55 Consultations 02/27/19 19:39 ED Decision to Admit Stat 02/27/19 21:44 Consult Cardiology Routine Ordered Studies CT angio chest PE protocol CT DOSE: 722.24 mGy.cm HISTORY: Chest pain. Dyspnea. Chest Pain, eval for PE TECHNIQUE: Multiaxial CT images of the chest were performed following the intravenous administration of contrast to evaluate the pulmonary arteries. Maximal intensity projection images were also obtained. A dose lowering technique was utilized adhering to the principles of ALARA. COMPARISON STUDY: None. FINDINGS: There is a normal caliber thoracic aorta with no evidence for dissection. There is no evidence for pulmonary embolus. No pleural effusions. No pneumothorax. The liver and spleen are unremarkable. No mediastinal or hilar lymphadenopathy. The central airways are patent. The lungs are clear. IMPRESSION: No evidence for pulmonary embolus. The lungs are clear. 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 She had just left the hospital where she was sitting with her gemutzex-wn-dol and her grandchild. She was on her way home when symptoms began. She did not have any syncope, nausea, vomiting, diarrhea, fevers, coughing up blood, chest pain or shortness of breath. She did not have any recent travel or recent surgery and denied hormone supplementation. She denied excess caffeine intake. On arrival to the ER, heart rate was 178 blood pressure was 85/52 and she was afebrile and oxygen eating well on room air. She was alert and oriented to person place and time and did not appear in distress. An EKG was performed revealing SVT, and SVT was noted on the monitor with a heart rate of 170. At that time her blood pressure was recorded as 146/128. Modified vagal maneuvers were attempted but were unsuccessful. Adenosine 6 mg IV was given and she converted to normal sinus rhythm. She remained in normal sinus rhythm without tachycardia throughout the remainder of her hospital stay. She was admitted to the hospitalist service and placed on telemetry. Cardiology was consulted and recommended Toprol-XL 25 mg p.o. daily and avoiding excessive caffeine and alcohol intake as well as maintaining adequate hydrated hydration and electrolyte replacement. Although electrolytes were within normal limits, labwork did reflect some mild dehydration which may have been a trigger. A resting 2D echocardiogram was performed but pending at the time of discharge. Cardiology follow-up was recommended outpatient within 1 month at time of discharge she was hemodynamically stable and afebrile and feeling well. She was in normal sinus rhythm and close primary care follow-up was scheduled prior to discharge. Total Time Total Time Spent Total Time Spent (In Minutes): 60 Total Time Includes: Examination of the Patient, Discharge Planning, Medication Reconciliation, Communication With Other Providers and Other (scheduled outpatient followup) Discharge Plan Discharge Items Patient Disposition: Home - Self-Care Reason For Visit: PSVT Discharge Diagnosis: Supraventricular tachycardia Condition: Good Discharge Goals: Improve disease control Activity: Resume your previous activity Non-emergency contact: Primary Care Provider Call non-emergency contact if: you have any medication questions, your symptoms worsen, your pain is not controlled and you have a fever Follow-up/Referrals: Delvis Yousif MD [Primary Care Provider] - Diet: Regular Addtl Provider Instructions: Please take medications as instructed on discharge list below. Please followup with Dr. Yovani Jones at [facility] in one month for reassessment. Followup with Dr. Yousif has been scheduled for: Date & Time 03/05/2019 11:20 AM Provider Delvis Yousif MD [facility] It was a pleasure taking care of you! Please call if you have any questions or problems. You can reach a [facility] hospitalist on duty at [facility] 24 hours a day by calling [phone]. Take care of yourself. Leena Brito, [facility] Hospitalist Prescriptions: New metoprolol succinate 25 mg Tablet Extended Release 24 Hr 25 mg PO QAM Qty: 30 RF: 1 Continued [id number] Tablet 2 tab PO QPM RF: 0 ibuprofen [Advil] 200 mg Tablet 200 - 400 mg PO UD PRN (Reason: Pain) RF: 0 Stand-Alone Forms: My [facility] Discharge Orders: Discharge Order (Routine); Ordered 02/28/19 Ordered By: Leena Brito Admission Data Admit Date/Time: 02/27/19 21:44 Attending Provider: Leena Brito Admit Provider: Flip Espinoza Primary Care Provider: Rozick,Delvis S. Other Providers: Flip Espinoza ; Martín Jones ; Erasmo May ; Noble Hooks ; Bao Jones ; Ward Gutierrez ; Delvis Stapleton ; Shantell Garcia ; Nettie Dodd Service: Telemetry
== END 2019-02-28 10:28 | disposition home or self-care (01) | DRG 310 ==
LOC: ED 17:55 → 2S 21:44